=== PATIENT | female | born 2000 | race Caucasian/White ===

== ENCOUNTER 2021-05-30 18:13 | Emergency (ER) | payer OTHER ==
[~2021-05-30] VITALS: Ht 170.1 cm; Wt 45.0 kg
--- NOTE | 2021-05-30 18:36 | ED GI ---
General Stated Complaint: ABD PAIN Source of Information: Patient History of Present Illness Date Seen by Provider: May 30, 2021 Time Seen by Provider: 18:20 Initial Comments PT ARRIVES VIA POV FROM HOME WITH MOM C/O CONSTIPATION FOR SEVERAL DAYS C/O SEVERE PAIN IN RECTUM AND URGE TO HAVE BM FOR SEVERAL DAYS LAST STOOL WAS A COUPLE OF TINY LM 3 DAYS AGO NO RECTAL BLEEDING NO ACTUAL PAIN IN ABDOMEN NO NAUSEA/VOMITING NO PAIN ON URINATION, BUT HAS TO PUSH/STRAIN TO GET URINE OUT NO FEVER NO HISTORY OF SIMILAR PT TOOK A DULCOLAX TABLET AND TRIED TO TAKE MIRALAX--BUT TOOK LESS THAN 1/2 OF IT--A COUPLE OF HOURS AGO WAS UNABLE TO DO AN ENEMA HAS NOT TAKEN ANYTHING ELSE FOR SYMPTOMS HAS NOT SOUGHT CARE UNTIL TONIGHT PT HAS BEEN ON SUBOXONE X 90 DAYS FOR OXYCODONE ADDICTION NO PROBLEMS WITH CONSTIPATION UNTIL THIS WEEK PT HAS CHRONIC NAUSEA FOR YEARS, AND TAKES ZOFRAN ON REGULAR BASIS LMP--UNKNOWN--HAS NEXPLANON IN PLACE [facility] Allergies and Home Medications Allergies Coded Allergies: No Known Drug Allergies (Unverified , 05/30/21) Patient Home Medication List Hydrocortisone (Proctocort) 28.4 Gm Cream..g., 28.4 GM TP BID Prescribed by: RANCHO ROWELL on 05/30/212024 Lidocaine HCl (Lidocaine HCl Viscous) 15 Ml Solution, 1-2 ML MM [id number] Prescribed by: RANCHO ROWELL on 05/30/212024 Review of Systems Review of Systems Constitutional: no symptoms reported Cardiovascular: No Symptoms Reported Gastrointestinal: See HPI, Constipated; Denies Rectal Bleeding Genitourinary: No Symptoms Reported Musculoskeletal: no symptoms reported Skin: no symptoms reported Endocrine: No Symptoms Reported Hematologic/Lymphatic: No Symptoms Reported Past Uccqqjd-Umutda-Gbfzno Hx Patient Social History Tobacco Use?: No Substance use?: Yes Substance type: Opiates/Opioids Additional substance use comme: OXYCODONE ADDICTION--ON SUBOXONE SINCE 02/2021 Alcohol Use?: No Immunizations Up To Date Second COVID19 Vaccination Stanislaw: 09/2020 COVID19 Vaccine Electorate Officer: Nasty Gal Past Medical History Surgeries: No Respiratory: No Cardiac: No Neurological: No Genitourinary: No Gastrointestinal: No Musculoskeletal: No Endocrine: No HEENT: No Cancer: No Psychosocial: Yes (SUBSTANCE ABUSE) Integumentary: No Blood Disorders: No Physical Exam Vital Signs Vital Signs - First Documented 05/30/21 18:21 Temp 36.5 Pulse 105 Resp 20 B/P (MAP) 134/70 (91) Pulse Ox 100 O2 Delivery Room Air Capillary Refill : Height/Weight/BMI Height: '" Weight: lbs. oz. kg; BMI Method: General Appearance: cachetic, other (LOOKS UNCOMFORTABLE) Respiratory: normal breath sounds Cardiovascular: regular rate, rhythm, no murmur Gastrointestinal: normal bowel sounds, non tender, soft, no organomegaly Rectal: hemorrhoids (EXTERNAL AND INTERNAL HEMORRHOIDS NOTED. ), tenderness (MARKED TENDERNESS), other (HARD PEBBLE STOOL NOTED IN RECTUM. STOOL NORMAL BROWN COLOR. ) Extremities: normal inspection Neurologic/Psychiatric: no motor/sensory deficits, alert, oriented x 3 Skin: normal color, warm/dry Progress/Results/Core Measures Results/Orders Lab Results Laboratory Tests Test 05/30/21 18:36 05/30/21 19:00 Range/Units White Blood Count 12.0 H 4.3-11.0 10^3/uL Red Blood Count 4.35 3.80-5.11 10^6/uL Hemoglobin 13.4 11.5-16.0 g/dL Hematocrit 40 35-52 % Mean Corpuscular Volume 92 80-99 fL Mean Corpuscular Hemoglobin 31 25-34 pg Mean Corpuscular Hemoglobin Concent 34 32-36 g/dL Red Cell Distribution Width 11.4 10.0-14.5 % Platelet Count 205 130-400 10^3/uL Mean Platelet Volume 10.5 9.0-12.2 fL Immature Granulocyte % (Auto) 0 % Neutrophils (%) (Auto) 84 H 42-75 % Lymphocytes (%) (Auto) 10 L 12-44 % Monocytes (%) (Auto) 5 0-12 % Eosinophils (%) (Auto) 0 0-10 % Basophils (%) (Auto) 0 0-10 % Neutrophils # (Auto) 10.0 H 1.8-7.8 10^3/uL Lymphocytes # (Auto) 1.2 1.0-4.0 10^3/uL Monocytes # (Auto) 0.6 0.0-1.0 10^3/uL Eosinophils # (Auto) 0.0 0.0-0.3 10^3/uL Basophils # (Auto) 0.1 0.0-0.1 10^3/uL Immature Granulocyte # (Auto) 0.0 0.0-0.1 10^3/uL Sodium Level 139 135-145 MMOL/L Potassium Level 3.8 3.6-5.0 MMOL/L Chloride Level 107 98-107 MMOL/L Carbon Dioxide Level 21 21-32 MMOL/L Anion Gap 11 5-14 MMOL/L Blood Urea Nitrogen 9 7-18 MG/DL Creatinine 0.79 0.60-1.30 MG/DL Estimat Glomerular Filtration Rate 90 BUN/Creatinine Ratio 11 Glucose Level 97 70-105 MG/DL Calcium Level 9.6 8.5-10.1 MG/DL Corrected Calcium 9.4 8.5-10.1 MG/DL Total Bilirubin 0.4 0.1-1.0 MG/DL Aspartate Amino Transf (AST/SGOT) 15 5-34 U/L Alanine Aminotransferase (ALT/SGPT) 8 0-55 U/L Alkaline Phosphatase 62 40-136 U/L Total Protein 7.4 6.4-8.2 GM/DL Albumin 4.3 3.2-4.5 GM/DL Amylase Level 80 25-125 U/L Lipase 21 8-78 U/L Serum Test, Qualitative NEGATIVE NEGATIVE Serum Alcohol < 10 <10 MG/DL Urine Color YELLOW Urine Clarity CLEAR Urine pH 6.0 5-9 Urine Specific Sharon >=1.030 1.016-1.022 Urine Protein NEGATIVE NEGATIVE Urine Glucose (UA) NEGATIVE NEGATIVE Urine Ketones TRACE H NEGATIVE Urine Nitrite NEGATIVE NEGATIVE Urine Bilirubin NEGATIVE NEGATIVE Urine Urobilinogen 0.2 < = 1.0 MG/DL Urine Leukocyte Esterase NEGATIVE NEGATIVE Urine RBC (Auto) NEGATIVE NEGATIVE Urine RBC NONE /HPF Urine WBC 2-5 /HPF Urine Squamous Epithelial Cells 2-5 /HPF Urine Renal Epithelial Cells NONE /HPF Urine Crystals NONE /LPF Urine Bacteria NEGATIVE /HPF Urine Casts NONE /LPF Urine Mucus MODERATE H /LPF Urine Culture Indicated NO Urine Opiates Screen NEGATIVE NEGATIVE Urine Oxycodone Screen NEGATIVE NEGATIVE Urine Methadone Screen NEGATIVE NEGATIVE Urine Propoxyphene Screen NEGATIVE NEGATIVE Urine Barbiturates Screen NEGATIVE NEGATIVE Ur Tricyclic Antidepressants Screen NEGATIVE NEGATIVE Urine Phencyclidine Screen NEGATIVE NEGATIVE Urine Amphetamines Screen NEGATIVE NEGATIVE Urine Methamphetamines Screen NEGATIVE NEGATIVE Urine Benzodiazepines Screen NEGATIVE NEGATIVE Urine Cocaine Screen NEGATIVE NEGATIVE Urine Cannabinoids Screen NEGATIVE NEGATIVE My Orders Orders - RANCHO ROWELL DO Ed Iv/Invasive Line Start (05/30/21 18:23) Urine Bedside (05/30/21 18:23) Amylase (05/30/21 18:23) Cbc With Automated Diff (05/30/21 18:23) Comprehensive Metabolic Panel (05/30/21 18:23) Lipase (05/30/21 18:23) Ua Culture If Indicated (05/30/21 18:23) Alcohol (05/30/21 18:30) Drug Screen Stat (Urine) (05/30/21 18:30) Hcg,Qualitative Serum (05/30/21 18:54) Acute Abd Series (05/30/21 18:54) Lidocaine 2% (Urojet) (Xylocaine Urojet) (05/30/21 19:00) Lidocaine 2% (Urojet) (Xylocaine Urojet) (05/30/21 20:30) Bisacodyl Suppository (Dulcolax Supposit (05/30/21 20:30) Mineral Oil Enema (Fleet Oil Enema) (05/30/21 20:30) Na Phos/Na Biphos Enema (Fleet Enema Stephen (05/30/21 20:30) Medications Given in ED Current Medications Medications Dose Ordered Sig/Ezekiel Route Start Time Stop Time Status Last Admin Dose Admin Bisacodyl 10 mg ONCE ONCE NV 05/30/21 20:30 05/30/21 20:31 DC 05/30/21 20:26 10 MG Lidocaine HCl 10 ml ONCE ONCE TOP 05/30/21 19:00 05/30/21 19:01 DC 05/30/21 19:00 10 ML Lidocaine HCl 10 ml ONCE ONCE TOP 05/30/21 20:30 05/30/21 20:31 DC 05/30/21 20:26 10 ML Vital Signs/I&O 05/30/21 18:21 Temp 36.5 Pulse 105 Resp 20 B/P (MAP) 134/70 (91) Pulse Ox 100 O2 Delivery Room Air Progress Progress Note : Progress Note VISCOUS LIDOCAINE/UROJET PLACED IN RECTUM--RECTAL PAIN EASED DISCUSSED WITH MOTHER AND PATIENT MULTIPLE OVER THE COUNTER TREATMENTS FOR THIS CONDITION MOM REPORTS PRIOR TO DISMISSAL THAT HER BROTHER (PT'S UNCLE) AT AGE 36 OF COLON CANCER. WILL HAVE PT FOLLOW UP WITH DR. JAVED FOR POSSIBLE SCREENING COLONSCOPY. Diagnostic Imaging Comments ACUTE ABDOMEN XRAYS--PER RADIOLOGIST REPORT AT 2004 FINDINGS: There is an elevated colonic fecal load through the rectal vault. No significant distention of bowel or focal impaction and no evidence for resultant obstruction. No suspicious calcifications. Lungs and pleura are normal. No failure, effusion or pneumothorax. IMPRESSION: Elevated fecal load. Correlate for constipation. No evidence for obstruction or perforation. The chest was negative. Reviewed: Reviewed by Me Departure Impression Primary Impression: Constipation Additional Impression: Hemorrhoids Disposition: HOME, SELF-CARE Condition: Stable Departure-Patient Inst. Decision time for Depature: 20:05 Referrals: ROSENDA JAVED,LOCAL PHYSICIAN (PCP) Primary Care Physician Patient Instructions: Hemorrhoids, How to Do a Sitz Bath, Constipation, Adult (DC) Add. Discharge Instructions: DECREASE CAFFEINE AND INCREASE WATER INTAKE INCREASE FIBER IN DIET TYLENOL AND MOTRIN NEEDED FOR PAIN TAKE MIRALAX EVERY HOUR UNTIL YOUR BOWELS MOVE, THEN USE DAILY DULCOLAX SUPPOSITORIES RECTALLY AND FLEET'S ENEMAS UNTIL YOUR BOWELS MOVE YOU MAY ALSO USE OVER THE COUNTER PREPARATION H FOR RECTAL PAIN FOLLOW UP WITH YOUR DR IN 1-2 DAYS IF NO BETTER FOLLOW UP WITH DR. JAVED, SURGEON, FOR POSSIBLE SCREENING COLONOSCOPY DUE TO FAMILY HISTORY. Scripts Hydrocortisone (Proctocort) 28.4 Gm Cream..g. 28.4 GM TP BID, #1 TUBE Prov: RANCHO ROWELL DO 05/30/21 Lidocaine HCl (Lidocaine HCl Viscous) 15 Ml Solution 1-2 ML MM [id number], #120 ML Prov: RANCHO ROWELL DO 05/30/21 RANCHO ROWELL DO May 30, 2021 18:36
[2021-05-30 18:52] LABS: BASOPHILS # (AUTO) 0.1 10^3/uL (0.0-0.1); BASOPHILS % (AUTO) 0 % (0-10); EOSINOPHILS % (AUTO) 0 % (0-10); HEMATOCRIT 40 % (35-52); HEMOGLOBIN 13.4 g/dL (11.5-16.0); LYMPHOCYTES # (AUTO) 1.2 10^3/uL (1.0-4.0); LYMPHOCYTES % (AUTO) 10 % (12-44); MEAN CORPUSCULAR HEMOGLOBIN 31 pg (25-34); MEAN CORPUSCULAR HGB CONC 34 g/dL (32-36); MEAN CORPUSCULAR VOLUME 92 fL (80-99); MEAN PLATELET VOLUME 10.5 fL (9.0-12.2); MONOCYTES # (AUTO) 0.6 10^3/uL (0.0-1.0); MONOCYTES % (AUTO) 5 % (0-12); NEUTROPHILS % (AUTO) 84 % (42-75); PLATELET COUNT 205 10^3/uL (130-400)
[2021-05-30 18:59] LABS: ALBUMIN 4.3 GM/DL (3.2-4.5); CHLORIDE 107 MMOL/L (98-107); POTASSIUM 3.8 MMOL/L (3.6-5.0); SODIUM 139 MMOL/L (135-145)
[2021-05-30 19:00] LABS: AMYLASE 80 U/L (25-125); CALCIUM 9.6 MG/DL (8.5-10.1)
[2021-05-30] MEDS ORDERED: LIDOCAINE UROJET 2% GEL 10 ML PKG TOP ONE ×2 (19:00→20:30)
[2021-05-30 19:01] LABS: GLUCOSE 97 MG/DL (70-105)
[2021-05-30 19:02] LABS: TOTAL PROTEIN 7.4 GM/DL (6.4-8.2)
[2021-05-30 19:03] LABS: BILIRUBIN,TOTAL 0.4 MG/DL (0.1-1.0); CARBON DIOXIDE 21 MMOL/L (21-32)
[2021-05-30 19:05] LABS: ALKALINE PHOSPHATASE 62 U/L (40-136); CREATININE SERUM 0.79 MG/DL (0.60-1.30); GFR ESTIMATED 90
[2021-05-30 19:06] LABS: BUN/CREATININE RATIO 11
[2021-05-30 19:08] LABS: ALANINE AMINOTRANSFERASE 8 U/L (0-55)
[2021-05-30 19:09] LABS: BILIRUBIN,URINE NEGATIVE (NEGATIVE); CLARITY,URINE CLEAR; COLOR,URINE YELLOW; GLUCOSE, URINE (UA) NEGATIVE (NEGATIVE); KETONES,URINE TRACE (NEGATIVE); LEUKOCYTE ESTERASE ,URINE NEGATIVE (NEGATIVE); NITRITE,URINE NEGATIVE (NEGATIVE); PROTEIN,URINE NEGATIVE (NEGATIVE)
[2021-05-30 19:09] LABS: LIPASE 21 U/L (8-78)
[2021-05-30 19:18] LABS: BACTERIA,URINE NEGATIVE /HPF
[2021-05-30 19:20] LABS: AMPHETAMINE SCREEN, URINE NEGATIVE (NEGATIVE); BARBITURATE SCREEN URINE NEGATIVE (NEGATIVE); BENZODIAZEPINES SCREEN URINE NEGATIVE (NEGATIVE); CANNABINOID SCREEN, URINE NEGATIVE (NEGATIVE); COCAINE SCREEN URINE NEGATIVE (NEGATIVE); METHADONE STAT NEGATIVE (NEGATIVE); METHAMPHETAMINE SCREEN URINE S NEGATIVE (NEGATIVE); OPIATE SCREEN URINE NEGATIVE (NEGATIVE); OXYCODONE STAT NEGATIVE (NEGATIVE); PROPOXYPHENE STAT NEGATIVE (NEGATIVE); TRICYCLIC ANTIDEPRESSANTS SCRE NEGATIVE (NEGATIVE)
--- NOTE | 2021-05-30 19:28 | Diagnostic Imaging Report ---
INDICATION: Rectal pain FINDINGS: There is an elevated colonic fecal load through the rectal vault. No significant distention of bowel or focal impaction and no evidence for resultant obstruction. No suspicious calcifications. Lungs and pleura are normal. No failure, effusion or pneumothorax. IMPRESSION: Elevated fecal load. Correlate for constipation. No evidence for obstruction or perforation. The chest was negative. Dictated by: Dictated on workstation # [id number]
[2021-05-30] MEDS ORDERED: LIDO20SO23 MM (20:25)
[2021-05-30] MEDS ORDERED: HYDR28.336 TP (20:25)
[2021-05-30] MEDS ORDERED: FLEET ENEMA ADULT 1 EA BTL PR ONE (20:30)
[2021-05-30] MEDS ORDERED: BISACODYL 10 MG SUPP (DULCOLAX) PR ONE (20:30)
[2021-05-30] MEDS ORDERED: MINERAL OIL ENEMA 133 ML BTL PR ONE (20:30)
[2021-05-30 20:47] VITALS: BP 121/71
== END 2021-05-30 20:36 | disposition home or self-care (01) ==
LOC: ER 18:15
DX: K64.8 Other hemorrhoids (principal); K64.4 Residual hemorrhoidal skin tags
CPT/HCPCS: 74022; 80053; 80306; 81000; 82150; 83690; 84703 ×2; 85025; 99284; G0480; 36415; 80320